=== PATIENT | male | born 1995 | race Caucasian/White ===

== ENCOUNTER 2017-01-23 20:25 | Emergency (ER) | payer MEDICAID ==
[2017-01-23] MEDS ORDERED: Tmp-Smz 800 mg-160 mg DS Tab PO STA (21:08)
--- NOTE | 2017-01-23 21:12 | ED PDOC ---
Arrival/HPI - General Chief Complaint: Lower Extremity Problem/Injury Time Seen by Provider: 01/23/17 21:01 Historian: Patient - History of Present Illness Narrative History of Present Illness (Text): 01/23/17 21:13 21yr old male presents today with worsening left great toe nail pain. pt states he has hx of ingrown toe nail and has been having issues with that toe for the past year but has never seen a foot doctor. pt denies fever/chills. c/o pain to the great toe at distal tip. denies numbness, weakness, tingling. no medications taken for pain at home. no other complaints. Time/Duration: Other (on and off x 1 year) Symptom Course: Worsening Quality: Aching, Throbbing Severity Level: 4 Past Medical History - Provider Review Nursing Documentation Reviewed: Yes - Travel History Have you recently traveled outside [place] w/in the past 3 mons?: No - Tetanus Immunization Tetanus Immunization: Unknown - Psychiatric Hx Substance Use: No - Anesthesia Hx Anesthesia: No Family/Social History - Physician Review Nursing Documentation Reviewed: Yes Family/Social History: Unknown Family HX Smoking Status: Never Smoked Hx Alcohol Use: No Hx Substance Use: No Allergies/Home Meds Allergies/Adverse Reactions: Allergies No Known Allergies Allergy (Verified 01/23/17 20:35) Review of Systems - Review of Systems Constitutional: absent: Fatigue, Fevers Respiratory: absent: SOB Cardiovascular: absent: Chest Pain Gastrointestinal: absent: Abdominal Pain Musculoskeletal: Arthralgias Skin: absent: Rash, Pruritis Neurological: absent: Headache Physical Exam Vital Signs Reviewed: Yes Vital Signs Temp Pulse Resp BP Pulse Ox 01/23/17 20:31 98.5 F 80 18 120/73 98 Temperature: Afebrile Blood Pressure: Normal Pulse: Regular Respiratory Rate: Normal Appearance: Positive for: Well-Appearing, Non-Toxic, Comfortable Pain Distress: None Mental Status: Positive for: Alert and Oriented X 3 - Systems Exam Head: Present: Atraumatic Mouth: Present: Moist Mucous Membranes Respiratory/Chest: Present: Clear to Auscultation Cardiovascular: Present: Regular Rate and Rhythm Lower Extremity: Present: Normal ROM, Tenderness (left great toe; + edema noted to medial cuticle, no erythema; + tenderness; full rom of toe; sensation intact. ), Swelling, Neurovascularly Intact, Capillary Refill < 2 s. No: Erythema Skin: Present: Warm, Dry Psychiatric: Present: Alert, Oriented x 3 Medical Decision Making ED Course and Treatment: 01/23/17 21:16 pt non toxic well appearing; no distress. stable vitals. with ingrown left great toenail. advised warm soaks, motrin for pain, advised bactrim twice daily, advised applying bacitracin twice daily. advised f/u with vegetable cutter within the next 2 days. pt verbalized understand of Discharge instructions and need for f/u with vegetable cutter. impression; ingrown toenail Bactrim twice daily x 7 days Motrin every 6 hours as needed for pain bacitracin apply twice daily to affected area warm soaks Follow-up with primary care physician within the next 2 days Follow-up with a vegetable cutter within the next 2 days Return if symptoms worsen or persist or if new concerning symptoms develop - Medication Orders Current Medication Orders: Ibuprofen (Motrin Tab) 600 mg PO STAT STA Stop: 01/23/17 21:09 Trimethoprim/Sulfamethoxazole (Bactrim Ds Tab) 1 tab PO STAT STA PRN Reason: Protocol Stop: 01/23/17 21:09 Disposition/Present on Arrival - Present on Arrival Any Indicators Present on Arrival: No History of DVT/PE: No History of Uncontrolled Diabetes: No Urinary Catheter: No History of Decub. Ulcer: No History Surgical Site Infection Following: None - Disposition Have Diagnosis and Disposition been Completed?: Yes Diagnosis: Ingrown toenail Disposition: HOME/ ROUTINE Disposition Time: 21:09 Patient Plan: Discharge Condition: GOOD Discharge Instructions (ExitCare): Ingrown Nail (ED) Additional Instructions: Bactrim twice daily x 7 days Motrin every 6 hours as needed for pain bacitracin apply twice daily to affected area warm soaks Follow-up with primary care physician within the next 2 days Follow-up with a vegetable cutter within the next 2 days Return if symptoms worsen or persist or if new concerning symptoms develop Prescriptions: Bacitracin OINT 1 applic TP BID #1 tube Ibuprofen [Motrin] 600 mg PO Q6H PRN #20 tab PRN Reason: pain/fever reduction Sulfamethoxazole/Trimethoprim [Bactrim DS 800 mg-160 mg] 1 tab PO BID #14 tab Referrals: Dottie Celis MD [Staff Provider] - Follow up with primary Arloro,Vincent, DPM [Staff Provider] - Follow up with primary Pau Salazar DPM [Staff Provider] - Follow up with primary
[2017-01-24 12:10] VITALS: BP 120/73; PULSE 80; RESP 18; TEMP 98.5; O2SAT 98
== END 2017-01-23 21:28 | disposition home or self-care (01) ==
LOC: ED 20:25
DX: L60.0 Ingrowing nail (principal)